=== PATIENT | female | born 1975 | race Caucasian/White ===

== ENCOUNTER 2017-08-13 23:24 | Emergency (ER) | payer BC ==
[2017-08-14 01:11] LABS: BASOPHIL % 1.4 % (0-2); PLATELET COUNT 243 x10^3mcL (130-400); RED CELL DISTRIBUTION WIDTH 11.9 % (11.5-14.5)
[2017-08-14 03:05] VITALS: BP 136/103
== END 2017-08-14 03:05 | disposition home or self-care (01) ==
LOC: ED 23:24
PROVIDERS: Emergency Medicine
DX: N30.01 Acute cystitis with hematuria (principal)
CPT/HCPCS: 36415

== ENCOUNTER 2017-09-14 04:59 | Emergency (ER) | payer BC ==
[2017-09-14 07:29] LABS: BASOPHIL % 0.7 % (0-2); CALCIUM 8.3 mg/dL (8.5-10.1); CARBON DIOXIDE 25.4 mmol/L (21-32); CHLORIDE SERUM 105 mmol/L (98-107); CREATININE SERUM 0.7 mg/dL (0.6-1.0); GFR1 > 60 mL/min; GLUCOSE SERUM 91 mg/dL (74-106); PLATELET COUNT 196 x10^3mcL (130-400); POTASSIUM SERUM 3.9 mmol/L (3.5-5.1); SODIUM SERUM 140 mmol/L (136-145)
[2017-09-14 07:30] LABS: UA SPECIFIC GRAVITY <=1.005 (1.005-1.035); microscopic required? YES; urine erythrocyte TRACE (NEGATIVE)
[2017-09-14 07:33] LABS: ALBUMIN 3.4 g/dL (3.4-5.0); ALKALINE PHOSPHATASE 48 U/L (46-116); ALT/SGPT 67 U/L (14-59); AST/SGOT 82 U/L (15-37); BILIRUBIN TOTAL 0.61 mg/dL (0.20-1.00); CHOLESTEROL 181 mg/dL (<200); CHOLESTEROL/HDL RATIO 2.8; HDL CHOLESTEROL 65 mg/dL (40-60); LIPASE 221 IU/L (73-393); TOTAL PROTEIN, SERUM 7.8 g/dL (6.4-8.2); TRIGLYCERIDES 148 mg/dL (<150)
[2017-09-14 07:40] LABS: T3 TOTAL 1.48 ng/mL
[2017-09-14 07:44] LABS: FREE T4 1.07 ng/dL (0.76-1.46); FREE THYROXINE INDEX 3.3 ug/dL (1.4-4.5); T4(THYROXINE) 10.1 ug/dL (4.7-13.3)
[2017-09-14 07:51] LABS: AMPHETAMINE QUAL UR NONE DETECTED (NEG <=1000)
[2017-09-14 09:04] VITALS: BP 118/84
== END 2017-09-14 09:04 | disposition home or self-care (01) ==
LOC: ED 04:59
PROVIDERS: Specialist
DX: F41.9 Anxiety disorder, unspecified (principal); F10.129 Alcohol abuse with intoxication, unspecified
CPT/HCPCS: 36415; 83880; 84439; G0480; Q0092

== ENCOUNTER 2018-06-04 12:24 | Emergency (ER) | payer BC ==
[~2018-06-04] VITALS: Ht 152.4 cm; Wt 57.6 kg
[2018-06-04 12:36] VITALS: Ht 152.4 cm; Wt 57.6 kg
[2018-06-04 14:53] LABS: microscopic required? NO
[2018-06-04 14:53] LABS: BASOPHIL % 0.9 % (0-2); PLATELET COUNT 211 x10^3mcL (130-400); RED CELL DISTRIBUTION WIDTH 12.2 % (11.5-14.5)
[2018-06-04 15:01] LABS: urine erythrocyte NEGATIVE (NEGATIVE)
[2018-06-04 15:12] LABS: AMPHETAMINE QUAL UR NONE DETECTED (See below)
[2018-06-04 15:12] LABS: CALCIUM 8.4 mg/dL (8.5-10.1); CARBON DIOXIDE 26.8 mmol/L (21-32); CHLORIDE SERUM 99 mmol/L (98-107); CREATININE SERUM 0.7 mg/dL (0.6-1.0); GFR1 > 60 mL/min; GLUCOSE SERUM 94 mg/dL (74-106); POTASSIUM SERUM 3.5 mmol/L (3.5-5.1); SODIUM SERUM 135 mmol/L (136-145)
[2018-06-04 15:22] LABS: ALKALINE PHOSPHATASE 83 U/L (46-116); ALT/SGPT 148 U/L (14-59); AST/SGOT 230 U/L (15-37); BILIRUBIN TOTAL 0.61 mg/dL (0.20-1.00); MAGNESIUM 1.8 mg/dL (1.8-2.4)
[2018-06-04 15:24] LABS: ALBUMIN 3.3 g/dL (3.4-5.0); TOTAL PROTEIN, SERUM 8.4 g/dL (6.4-8.2)
[2018-06-04 16:34] VITALS: BP 146/89
== END 2018-06-04 16:34 | disposition home or self-care (01) ==
LOC: ED 12:24
PROVIDERS: Emergency Medicine
DX: S09.90XA Unspecified injury of head, initial encounter (principal); W22.8XXA Striking against or struck by other objects, initial encounter; Y93.89 Activity, other specified; Y92.89 Other specified places as the place of occurrence of the external cause; Y99.8 Other external cause status; F07.81 Postconcussional syndrome; R20.2 Paresthesia of skin; Z90.49 Acquired absence of other specified parts of digestive tract
CPT/HCPCS: 36415; 84439; 90715; J7030